=== PATIENT | male | born 1940 | race Caucasian/White ===

== ENCOUNTER 2016-07-07 09:10 | Outpatient (CLI) | payer OTHER ==
[2015-03-28 22:58] VITALS: BP 130/66
== END 2016-07-07 09:11 ==
LOC: LAB 09:10
PROVIDERS: ATTEND Family Medicine
DX: E78.00 Pure hypercholesterolemia, unspecified (principal)
CPT/HCPCS: 36415; 80061

== ENCOUNTER 2016-10-06 09:18 | Outpatient (CLI) | payer OTHER ==
[2015-03-28 22:58] VITALS: BP 130/66
[2016-10-06 09:32] LABS: BASOPHILS % 0.5 (0.0-1.5); EOSINOPHILS % 1.1 % (0.0-6.8); MEAN CORPUSCULAR HEMOGLOBIN 30.3 pg (28.0-34.0); MEAN CORPUSCULAR VOLUME 88.5 fl (80.0-100.0); MONOCYTES % 6.4 % (0.0-11.0)
[2016-10-06 10:01] LABS: eGFR (African) > 60; eGFR (Non-African) > 60
== END 2016-10-06 10:00 ==
LOC: LAB 09:18
PROVIDERS: ATTEND Family Medicine
DX: E11.9 Type 2 diabetes mellitus without complications (principal); I10 Essential (primary) hypertension
CPT/HCPCS: 36415; 80053; 83036; 85025

== ENCOUNTER 2017-01-10 09:37 | Outpatient (CLI) | payer OTHER ==
[2015-03-28 22:58] VITALS: BP 130/66
[2017-01-10 22:20] LABS: TOTAL PROTEIN 7.1 g/dL (6.0-8.5)
== END 2017-01-10 09:40 ==
LOC: LAB 09:37
PROVIDERS: ATTEND Family Medicine
DX: Z51.81 Encounter for therapeutic drug level monitoring (principal); E11.9 Type 2 diabetes mellitus without complications
CPT/HCPCS: 36415; 80053; 83036

== ENCOUNTER 2017-05-18 14:24 | Outpatient (CLI) | payer OTHER ==
[2015-03-28 22:58] VITALS: BP 130/66
== END 2017-05-18 14:25 ==
LOC: POD 14:24
PROVIDERS: ATTEND Podiatrist
DX: E11.42 Type 2 diabetes mellitus with diabetic polyneuropathy (principal); B35.1 Tinea unguium; M79.674 Pain in right toe(s); M79.675 Pain in left toe(s)
CPT/HCPCS: G0463

== ENCOUNTER 2017-06-24 13:30 | Emergency (ER) | payer OTHER ==
--- NOTE | 2017-06-24 13:33 | ED Physician Documentation ---
General Adult - HISTORIAN Historian: patient - HPI Stated Complaint: weakness Chief Complaint: Dizziness Onset: hours (3 - but similar has happened two days in a row ) Timing: better Severity: mild Further Comments: yes (He reports for two days he has had some mild weakness and dizziness without checking he took "sugar pills because I thought i was loosing my sugar like I sometimes do" . He states this am at 0900 he ate two pancakes with peanut butter and diet syrup and sausage with eggs. He states that he felt "a little dizzy" and then around 11 they went to the grocery where he does not go in. states when she returned to the car he was complining of increaed dizziness and some nausea. She states they had "two more stops then went home where I had to help him up the stairs and he did vomit one time" . States he thought is was loosing his sugar so he took one tablet but when checking the blood sugar was over 150. He states he thought he better come to the ER to get checked out for the dizziness and current mild nausea. He denies any dizziness while laying down No chest pain, no other complaints.) Last known Well Code/Unknown Code: Unknown - ROS CONST: weakness (x 3 days ) EYES/ENT: none CVS/RESP: denies: chest pain, shortness of breath, cough GI/: vomiting, nausea. denies: abdominal pain, problems urinating, diarrhea MS/SKIN/LYMPH: none NEURO/PSYCH: dizziness, difficulty walking. denies: headache, fainting, numbness, difficulty with speech, anxiety, depression - PAST HX Past History: other (diabetes, alzhemiers, hypertension, hyperlipidemia ) Other History: none Surgeries/Procedures: none Immunizations: UTD Allergies/Adverse Reactions: Allergies Allergy/AdvReac Type Severity Reaction Status Date / Time No Known Drug Allergies Allergy Verified 06/24/17 13:50 Home Medications: Ambulatory Orders Medication Instructions Recorded Diclofenac Sodium [Diclofenac 75 mg PO DAILY 06/24/17 Sodium] Donepezil HCl [Donepezil HCl] 10 mg PO DAILY 06/24/17 Lisinopril [Lisinopril] 20 mg PO DAILY 06/24/17 Metformin HCl [Glucophage] 500 mg PO BID 06/24/17 Simvastatin [Zocor] 20 mg PO DAILY 06/24/17 - SOCIAL HX Smoking History: cigarettes Alcohol Use: none Drug Use: none - FAMILY HX Family History: No - VITAL SIGNS Vital Signs: Vital Signs Temp Pulse Resp BP Pulse Ox 130/66 03/28/15 22:53 - REVIEWED ASSESSMENTS Nursing Assessment Reviewed: Yes Vitals Reviewed: Yes Progress - Progress Progress: 1435: Nausea is improved. Denies dizziness now. DG General Adult Physical Exam - PHYSICAL EXAM GENERAL APPEARANCE: no distress EENT: eye inspection normal, ENT inspection normal NECK: normal inspection RESPIRATORY: no resp distress, chest non-tender, breath sounds normal CVS: reg rate & rhythm, heart sounds normal, equal pulses, no murmur ABDOMEN: soft, no organomegaly, normal bowel sounds, no distension, non-tender BACK: normal inspection SKIN: warm/dry, normal color EXTREMITIES: non-tender, normal range of motion, no evidence of injury, no edema NEURO: oriented X3, CN's nml as tested, motor nml, sensation nml, mood/affect nml, cognition normal Discharge Clincal Impression: Dizziness Referrals: Sree Marie MD [Primary Care Provider] - 2 Days Additional Instructions: 1. Increase fluids with water 2. move positions slowly 3. Check blood sugar 3 times per day and if feeling bad for 3 days or until see PCP 4. See Dr Marie 3-4 days 5. Return to ER For any concerns 6. Zofran 4 mg by mouth every 8 hours as needed for nausea Condition: Stable Disposition: 01 HOME, SELF-CARE Decision to Admit: NO Date of Decison to Admit: 06/24/17 Decision Time: 14:46
[2017-06-24 13:58] LABS: BASOPHILS % 0.7 (0.0-1.5); EOSINOPHILS % 0.1 % (0.0-6.8); MEAN CORPUSCULAR HEMOGLOBIN 30.8 pg (28.0-34.0); MEAN CORPUSCULAR VOLUME 87.8 fl (80.0-100.0); MONOCYTES % 5.8 % (0.0-11.0); NEUTROPHILS # 8.7 # k/uL (1.4-7.7)
[2017-06-24] MEDS: 0.9 % SODIUM CHLORIDE 1,000 ML IV ONE (13:58)
[2017-06-24] MEDS: ONDANSETRON HCL/PF 4 MG/ 2ML VIAL IVP ONE (13:58)
[2017-06-24 14:06] LABS: eGFR (African) > 60; eGFR (Non-African) > 60
[2017-06-24 14:55] VITALS: BP 180/80
[2017-06-25 06:42] LABS: APPEARANCE,URINE CLEAR (CLEAR); COLOR,URINE YELLOW (YELLOW); OCCULT BLOOD,URINE NEGATIVE (NEGATIVE); UROBILINOGEN URINE 0.2 Eu (0.2-1.0)
== END 2017-06-24 14:50 | disposition home or self-care (01) ==
LOC: ED 13:30
DX: R42 Dizziness and giddiness (principal); I10 Essential (primary) hypertension; G30.9 Alzheimer's disease, unspecified; F02.80 Dementia in other diseases classified elsewhere, unspecified severity, without behavioral disturbance, psychotic disturbance, mood disturbance, and anxiety; E11.9 Type 2 diabetes mellitus without complications; E78.5 Hyperlipidemia, unspecified
CPT/HCPCS: 80053; 81002; 85025; J2405; J7030; 96365; 96375; 99283; S1016

== ENCOUNTER 2017-06-27 10:36 | Outpatient (CLI) | payer OTHER ==
--- NOTE | 2017-06-27 18:36 | Diagnostic Imaging Report ---
MELINA CAR [facility] [address] [facility] [address] [place], [place]. [address] Report Submission Date: Jun 27, 2017 11:37:19 AM COMPUTATIONAL SCIENTIST Patient Study Name: RUSTY KOENIG Date: Jun 27, 2017 11:04:27 AM COMPUTATIONAL SCIENTIST Modality Type: CT Gender: M Description: CT HEAD W/O CONTRAST : 38 Institution: [facility] Physician: MELINA CAR Examination: CT head without contrast History: CT HEAD W/O CONTRAST, VERTIGO; ATAXIA , SINCE 06/23/17 (Hx) / VERTIGO, ATAXIA (DICOM Hx) Comparison exam: None available Technique: Noncontrast head CT protocol. Findings: Ventricles and sulci are prominent. Cerebrocerebellar parenchyma demonstrates periventricular low attenuation consistent with small vessel disease. No evidence for parenchymal hemorrhage. No evidence for mass or mass effect. No midline shift. No extra axial fluid collections. Partial visualization of the paranasal sinuses, mastoid air cells, orbits, skull and scalp without gross irregularity. Impression: Moderate to advanced age related changes. No acute appearing parenchymal process. No hemorrhage. Electronically signed on Jun 27, 2017 11:37:19 AM COMPUTATIONAL SCIENTIST by: Garrett POLO
== END 2017-06-27 11:00 ==
LOC: RAD 10:36
PROVIDERS: ATTEND Family Medicine
DX: R27.0 Ataxia, unspecified (principal); R42 Dizziness and giddiness
CPT/HCPCS: 70450

== ENCOUNTER 2017-08-21 12:37 | Outpatient (CLI) | payer OTHER | END 2017-08-21 12:40 | LOC: POD 12:37 | PROVIDERS: ATTEND Podiatrist | DX: E11.42 Type 2 diabetes mellitus with diabetic polyneuropathy (principal); B35.1 Tinea unguium; M79.674 Pain in right toe(s); M79.675 Pain in left toe(s) | CPT/HCPCS: 11721; G0463 ==

== ENCOUNTER 2017-09-07 14:25 | Emergency (ER) | payer OTHER ==
--- NOTE | 2017-09-07 15:04 | ED Physician Documentation ---
General Adult - HISTORIAN Historian: patient, child - HPI Stated Complaint: weakness Chief Complaint: General Adult Additional Information: 'I JUST FEEL YUCKY" NON SPECIFIC ONSET THIOS AM DENIES PAIN. BK=OK E/S = OK-- BP USUALLYL NORMAL ON LISINOPRIL. BP 207/104 NOW Onset: other (AWOKE) Timing: still present Severity: moderate Further Comments: yes (PT DENIES EXPERICINT THIS FEELING BEFORE) - ROS CONST: no problems. denies: fever, sweating, recent illness EYES/ENT: none CVS/RESP: none GI/: none (NOCTURIA X 1) NEURO/PSYCH: denies: headache, fainting, dizziness, tingling, numbness, difficulty walking - PAST HX Past History: hypertension, other (DOABETES W/NEUROPATHY B/S=141) Other History: diabetes Type 2 Surgeries/Procedures: none Allergies/Adverse Reactions: Allergies Allergy/AdvReac Type Severity Reaction Status Date / Time No Known Drug Allergies Allergy Verified 09/07/17 14:44 Home Medications: Ambulatory Orders Medication Instructions Recorded Diclofenac Sodium [Diclofenac 75 mg PO DAILY 06/24/17 Sodium] Donepezil HCl [Donepezil HCl] 10 mg PO DAILY 06/24/17 Lisinopril [Lisinopril] 20 mg PO DAILY 06/24/17 Metformin HCl [Glucophage] 500 mg PO BID 06/24/17 Simvastatin [Zocor] 20 mg PO DAILY 06/24/17 Hydrochlorothiazide 12.5 mg PO DAILY #30 capsule 09/07/17 - SOCIAL HX Smoking History: non-smoker Alcohol Use: other (1 BEER PER DAY) Drug Use: none - FAMILY HX Family History: No - VITAL SIGNS Vital Signs: Vital Signs Temp Pulse Resp BP Pulse Ox 97.9 F 86 17 201/97 95 09/07/17 14:30 09/07/17 14:30 09/07/17 14:30 09/07/17 14:30 09/07/17 14:30 - REVIEWED ASSESSMENTS Nursing Assessment Reviewed: Yes Vitals Reviewed: Yes ED Results Lab/Radiology - Orders Orders: ED Orders Category Date Time Status Continuous EKG monitoring Q30M Care 09/07/17 15:00 Ordered Continuous Pulse Oximetry Q30M Care 09/07/17 15:[address] IV Lock 1T Care 09/07/17 15:00 Ordered CBC/PLATELET/DIFF Routine Lab 09/07/17 15:00 Ordered CMP Routine Lab 09/07/17 15:00 Ordered TROPONIN I (cTnI) Stat Lab 09/07/17 15:00 Ordered Nitroglycerin [Nitroquick] Med 09/07/17 14:55 Discontinued 0.4 mg SL .STK-MED ONE Nitroglycerin [Nitroquick] Med 09/07/17 15:00 Ordered 0.4 mg SL Q5M PRN EKG WITH COMPARISON Stat Ther 09/07/17 15:00 Ordered General Adult Physical Exam - PHYSICAL EXAM GENERAL APPEARANCE: mild distress EENT: eye inspection normal NECK: normal inspection, thyroid normal. No: carotid bruit RESPIRATORY: no resp distress, chest non-tender, breath sounds normal CVS: reg rate & rhythm, heart sounds normal ABDOMEN: soft, non-tender SKIN: warm/dry, normal color. No: cyanosis, diaphoresis, jaundice, mottled EXTREMITIES: non-tender, normal range of motion, no evidence of injury, no edema NEURO: oriented X3, motor nml, sensation nml, mood/affect nml, cognition normal Discharge Clincal Impression: unc htn, diab etic neuropathy Prescriptions: Hydrochlorothiazide 12.5 mg PO DAILY #30 capsule Referrals: Sree Marie MD [Primary Care Provider] - 2 Days Comments: increase lisinopril to two per day add hctz 12.5 - see pcp first week rted prn , disc hosp pt says no Condition: Good Disposition: 01 HOME, SELF-CARE Decision to Admit: NO Decision Time: 17:37
[2017-09-07] MEDS: NITROGLYCERIN 0.4 MG TAB.SUBL SL ONE (15:13)
[2017-09-07] MEDS: NITROGLYCERIN 0.4 MG TAB.SUBL SL PRN (15:13)
[2017-09-07 15:31] LABS: BASOPHILS % 0.4 (0.0-1.5); EOSINOPHILS % 0.2 % (0.0-6.8); MEAN CORPUSCULAR HEMOGLOBIN 29.7 pg (28.0-34.0); MONOCYTES % 6.1 % (0.0-11.0); NEUTROPHILS # 4.4 # k/uL (1.4-7.7)
[2017-09-07 15:50] LABS: eGFR (African) > 60; eGFR (Non-African) > 60
[2017-09-07] MEDS: HYDROCHLOROTHIAZIDE 25 MG TABLET PO SCH (16:32)
[2017-09-07] MEDS: CloNIDine HCL 0.1 MG TABLET PO ONE (16:32)
[2017-09-07 17:36] VITALS: BP 184/89
== END 2017-09-07 17:35 | disposition home or self-care (01) ==
LOC: ED 14:25
DX: I16.0 Hypertensive urgency (principal); E11.40 Type 2 diabetes mellitus with diabetic neuropathy, unspecified
CPT/HCPCS: 80053; 84484; 85025; S1016

== ENCOUNTER 2017-10-12 09:26 | Outpatient (CLI) | payer OTHER | END 2017-10-12 11:42 | LOC: LAB 09:26 | PROVIDERS: ATTEND Family Medicine | DX: R63.4 Abnormal weight loss (principal); E78.00 Pure hypercholesterolemia, unspecified; E11.9 Type 2 diabetes mellitus without complications | CPT/HCPCS: 36415; 80061; 83036; 84443 ==

== ENCOUNTER 2018-03-07 10:05 | Outpatient (CLI) | payer OTHER | END 2018-03-07 10:10 | disposition home or self-care (01) | LOC: LAB 10:05 | PROVIDERS: ATTEND Family Medicine | DX: E11.9 Type 2 diabetes mellitus without complications (principal) | CPT/HCPCS: 36415; 83036 ==

== ENCOUNTER 2018-04-22 12:52 | Outpatient (CLI) | payer OTHER ==
--- NOTE | 2018-04-22 20:02 | Diagnostic Imaging Report ---
ARNOLDO MEJIA [facility] [address] [address] Report Submission Date: Apr 22, 2018 5:34:38 PM REAL ESTATE ADMINISTRATOR Patient Study Name: RUSTY KOENIG Date: Apr 22, 2018 12:54:37 PM REAL ESTATE ADMINISTRATOR Modality Type: DX Gender: M Description: CHEST : 38 Institution: [facility] Physician: ARNOLDO MEJIA PA and lateral chest History: Cough PA and lateral chest dated April 22, 2018 is without prior radiographs for comparison. Heart size is normal. The left lung is clear. There is a region of right basilar streaky parenchymal density. This finding is age indeterminate but pneumonia would not be excluded. There is no pleural effusion. There is a mild pectus excavatum deformity. Impression: Mild pectus excavatum deformity. Mild streaky area of parenchymal density at the right lung base, age indeterminate. However, pneumonia would not be excluded. Electronically signed on Apr 22, 2018 5:34:38 PM REAL ESTATE ADMINISTRATOR by: Keyanna Chen Addendum: Follow-up would be recommended to determine if this abnormality resolves after antibiotic treatment. If there are any comparison radiographs elsewhere, they would also be helpful. Addendum electronically signed by Keyanna Chen on April 22, 2018 5:53:08 PM [facility]
== END 2018-04-22 12:53 ==
LOC: RAD 12:52
PROVIDERS: ATTEND Nurse Practitioner Family
DX: R05 Cough (principal)
CPT/HCPCS: 71046

== ENCOUNTER 2018-06-06 08:57 | Outpatient (CLI) | payer OTHER ==
--- NOTE | 2018-06-06 20:41 | OP Clinic Progress Note ---
RUSTY KOENIG ADMISSION#.: [id number] : 1940 DATE OF VISIT: 06/06/2018 SUBJECTIVE: Rusty Koenig is a 78-year-old male who presented today for toenail trimming as he is unable to do it himself. This patient is a diabetic patient and requires my services to take care of his toenails and to check his feet about every 3 months. The patient does not admit to any problems with the feet, and does not admit to any fevers, chills, nausea, vomiting, shortness of breath or chest pain at this time. OBJECTIVE: Vitals: Temperature 98.2 degrees Fahrenheit, heart rate 83, respiratory rate 20, blood pressure 152/71, oxygen saturation 96% on room air. Vascular: DP and PT pulses 1+, bilateral feet. Capillary refill time is less than 3 seconds to the toes bilaterally. There is no edema, bilateral feet. The feet are mildly cool to the touch at the toes. Pulses were very difficult if able to be palpated today which seems different from last time. We will keep an eye on this to see if there is any worsening on his next visit. Musculoskeletal: No pain to palpation noted, bilateral feet. No gross abnormalities, bilateral feet. 5/5 muscle strength in all directions around the ankle and subtalar joint, bilateral feet. No pain with range of motion of the ankle or subtalar joint bilaterally. Neurologic: Light touch sensation is intact to the toes, bilateral feet. ASSESSMENT AND PLAN: 1. Onychomycosis, B35.1. 2. Type 2 diabetes mellitus without complication, without custodial current use of insulin, 11.9. PROCEDURE #1: The toenails were trimmed bilaterally without incident. There are no other real concerns bilaterally on the feet at this time. They look great and are without any sign of ulcerative or preulcerative lesions. Due to the seemingly less palpable pulses today but without any clinical symptoms for the patient at this time we will monitor blood flow to see if anything changes between now and the next visit in 3 months. If any signs of change or discoloration in the toes at that time we will definitely consider arterial Dopplers at that time. Return to the clinic in 3 months in the health clinic next door. We will trim the nails, evaluate feet and perform a diabetic foot check again, and again consider a more in depth neurologic and vascular workup due to his diabetes. Vitor Joiner D.P.M. (Dictated/Not Signed) Nora Job#: [id number] MTDD
== END 2018-06-06 09:00 ==
LOC: POD 08:57
PROVIDERS: ATTEND Podiatrist Foot & Ankle Surgery
DX: B35.1 Tinea unguium (principal); E11.9 Type 2 diabetes mellitus without complications
CPT/HCPCS: 11719; A4554

== ENCOUNTER 2018-09-05 09:18 | Observation (INO) | payer OTHER ==
[2018-09-05 10:11] LABS: BASOPHILS % 0.4 % (0.0-1.5); NEUTROPHILS # 8.5 # k/uL (1.4-7.7)
[2018-09-05 10:13] LABS: eGFR (Non-African) > 60
--- NOTE | 2018-09-05 11:18 | ED Physician Documentation ---
General Adult - HISTORIAN Historian: patient, other (son) - HPI Stated Complaint: BLE Weakness Chief Complaint: General Adult Further Comments: yes (78 year old male patient brought in by son for evaluation of leg weakness. Patient and son report increased weakness and difficulty with walking since yesterday. Patient denies fall, trauma, pain. Denies incontinence of bowel, has history of urinary incontinence.) - ROS CONST: no problems EYES/ENT: none CVS/RESP: none GI/: none MS/SKIN/LYMPH: none NEURO/PSYCH: difficulty walking. denies: headache, fainting, dizziness, tingling, numbness, difficulty with speech, anxiety, depression, other - PAST HX Past History: hypertension Other History: diabetes Type 2, other (HLD, stroke) Allergies/Adverse Reactions: Allergies Allergy/AdvReac Type Severity Reaction Status Date / Time No Known Drug Allergies Allergy Verified 09/05/18 09:41 Home Medications: Ambulatory Orders Medication Instructions Recorded Aspirin [Aby] 1 tab PO DAILY 09/05/18 - SOCIAL HX Smoking History: non-smoker Alcohol Use: occasionally - FAMILY HX Family History: No - VITAL SIGNS Vital Signs: Vital Signs Temp Pulse Resp BP Pulse Ox 98.0 F 92 H 18 169/106 94 09/05/18 09:20 09/05/18 09:20 09/05/18 09:20 09/05/18 09:20 09/05/18 09:20 - REVIEWED ASSESSMENTS Nursing Assessment Reviewed: Yes Vitals Reviewed: Yes Progress - Progress Progress: [address] Madera. Will add CT L-spine; admit observation for PT/OT evaluation and social insurance adviser consult. ED Results Lab/Radiology - Lab Results Lab Results: Lab Results 09/05/18 09/05/18 09:35 09:35 WBC 10.40 K/ul K/ul (4.00-12.00) RBC 4.65 M/ul M/ul (3.90-5.20) Hgb 14.0 g/dL g/dL (12.0-18.0) Hct 40.6 % % (37.0-53.0) MCV 87.0 fl fl (80.0-100.0) MCH 30.1 pg pg (28.0-34.0) MCHC 34.4 g/dL g/dL (30.0-36.0) RDW 14.0 % % (11.3-14.3) Plt Count 302 K/mm3 K/mm3 (130-400) Neut % (Auto) 81.5 % H % (39.0-79.0) Lymph % (Auto) 8.9 % L % (16.0-50.0) Polk % (Auto) 8.1 % % (0.0-11.0) Eos % (Auto) 1.1 % % (0.0-6.8) Baso % (Auto) 0.4 % % (0.0-1.5) Neut # (Auto) 8.5 # k/uL H # k/uL (1.4-7.7) Lymph # (Auto) 0.9 # k/uL # k/uL (0.6-4.0) Polk # (Auto) 0.8 # k/uL # k/uL (0.0-0.9) Eos # (Auto) 0.1 # k/uL # k/uL (0.0-0.6) Baso # (Auto) 0.0 # k/uL # k/uL (0.0-0.5) Sodium 134 mmol/L L mmol/L (137-145) Potassium 4.6 mmol/L mmol/L (3.5-5.1) Chloride 101 mmol/L mmol/L (98-107) Carbon Dioxide 23 mmol/L mmol/L (22-30) BUN 14 mg/dL mg/dL (9-20) Creatinine 0.99 mg/dL mg/dL (0.66-1.25) Estimated Creat Clear 58 Est GFR ( Amer) > 60 (60 - ) Est GFR (Non-Af Amer) > 60 (60 - ) Glucose 167 mg/dL H mg/dL (74-106) Calcium 9.7 mg/dL mg/dL (8.4-10.2) Total Bilirubin 0.8 mg/dL mg/dL (0.2-1.3) AST 27 U/L U/L (15-46) ALT 20 U/L U/L (0-50) Alkaline Phosphatase 111 U/L U/L (38-126) Total Protein 8.1 g/dL g/dL (6.3-8.2) Albumin 4.3 g/dL g/dL (3.5-5.0) - Orders Orders: ED Orders Category Date Time Status CT BRAIN W/O CONTRAST Stat Exams 09/05/[address] LUMBAR SPINE W/O [CT L-SPINE W/O CONTRAST] Stat Exams 09/05/18 Ordered CBC/PLATELET/DIFF Stat Lab 09/05/18 09:35 Completed CMP Stat Lab 09/05/18 09:35 Completed UA W/MICRO IF INDICATED Stat Lab 09/05/18 10:00 Ordered General Adult Physical Exam - PHYSICAL EXAM GENERAL APPEARANCE: [id number] N EENT: eye inspection normal, ABE RESPIRATORY: no resp distress, chest non-tender, breath sounds normal CVS: reg rate & rhythm, heart sounds normal, equal pulses, no murmur, no gallop, PMI nml, no JVD, no friction rub, 24 ABDOMEN: soft, no organomegaly, normal bowel sounds, no abdominal bruit, no distension BACK: normal inspection, no CVA tenderness SKIN: normal color, warm/dry, NR, INT, PAL, DR EXTREMITIES: non-tender, no evidence of injury, no edema, other (lower extremity strength good 4/5; gait extremely unsteady, dragging feet, cannot miner pick feet to safely walk. Unsteady, high risk for fall. ) NEURO: oriented X3, sensation nml, mood/affect nml Discharge Clincal Impression: Risk for falls, Unsteady gait Lower extremity weakness Qualifiers: Laterality: bilateral Qualified Code(s): R29.898 - Other symptoms and signs involving the musculoskeletal system Condition: Stable Decision to Admit: NO Decision Time: 11:24
[2018-09-05 12:08] VITALS: BMI 24.7
[2018-09-05] MEDS: GABAPENTIN 100 MG CAPSULE PO SCH ×2 (12:29→17:45)
[2018-09-05] MEDS: metFORMIN HCl 500 MG TABLET PO SCH (17:45)
--- NOTE | 2018-09-05 18:10 | Diagnostic Imaging Report ---
ABBIE DEL REAL (INSIDE SALES LEAD) - ER [facility] [address] [facility] [address] [place], [place]. [address] Report Submission Date: September 05, 2018 10:25:29 AM CDT Patient Study Name: RUSTY KOENIG Date: September 05, 2018 10:04:40 AM CDT Modality Type: CT\SR Gender: M Description: CT BRAIN W/O CONTRAST : 38 Institution: [facility] Physician: ABBIE DEL REAL (INSIDE SALES LEAD) - ER Examination: CT head without contrast History: PT STATES LEG WEAKNESS AND INABILITY TO STAND Comparison exam: 27 June 2017 Technique: Noncontrast head CT protocol. Findings: Ventricles and sulci are prominent, though stable. Cerebrocerebellar parenchyma demonstrates periventricular low attenuation consistent with small vessel disease: also stable. No evidence for parenchymal hemorrhage. No evidence for mass or mass effect. No midline shift. No extra axial fluid collections. Partial visualization of the paranasal sinuses, mastoid air cells, orbits, skull and scalp without gross irregularity. Impression: Stable advanced age related changes. No acute parenchymal process. No hemorrhage. Electronically signed on September 05, 2018 10:25:29 AM CDT by: Garrett POLO
--- NOTE | 2018-09-05 18:11 | Diagnostic Imaging Report ---
ABBIE DEL REAL (COMMERCIAL GLAZIER) - ER [facility] [address] [facility] [address] [place], [place]. [address] Report Submission Date: September 05, 2018 11:51:28 AM CDT Patient Study Name: RUSTY KOENIG Date: September 05, 2018 11:15:41 AM CDT Modality Type: CT\SR Gender: M Description: CT L-SPINE W/O CONTRAS : 38 Institution: [facility] Physician: ABBIE DEL REAL (COMMERCIAL GLAZIER) - ER Examination: CT lumbar spine History: LOWER EXTREMITY WEAKNESS Comparison exams: None available. Technique: CT lumbar spine axial imaging with sagittal and coronal reconstruction Findings: Sagittal reconstruction demonstrates normal height and alignment the lumbar vertebral bodies. No anterior compression deformity. Large bone cyst involving the superior margin of the L3 vertebral body. Anterior and lateral osteophytes. Coronal reconstruction does not demonstrate locked or perched facets. Sacroiliac joint degenerative spurring. Aortic atherosclerotic disease. Dilation at the iliac bifurcation to a diameter of 3.5 cm. Axial imaging obtained from T12 through the sacrum Lamina and pedicles are intact. No ossific density within the central canal. Multilevel facet degenerative changes. No prevertebral soft tissue abnormality. Impression: Multilevel degenerative changes. No evidence for vertebral body compression fracture. Large bone cyst involving the superior margin of the L3 vertebral body. 3.5 cm aortic dilation/aneurysm. Follow as warranted. Patient may benefit from a nonemergent lumbar spine MRI which would better evaluate the L3 bone cyst and for the degree of nerve/cord encroachment. Electronically signed on September 05, 2018 11:51:28 AM CDT by: Garrett POLO
[2018-09-05] MEDS ORDERED: SIMVASTATIN 40 MG TABLET PO SCH (21:00)
[2018-09-05] MEDS ORDERED: traZODone HCL 50 MG TABLET PO SCH (21:00)
[2018-09-06] MEDS: metFORMIN HCl 500 MG TABLET PO SCH (06:35)
[2018-09-06 06:38] LABS: APPEARANCE,URINE CLEAR (CLEAR); COLOR,URINE YELLOW (YELLOW); OCCULT BLOOD,URINE TRACE-LYSED (NEGATIVE)
[2018-09-06] MEDS ORDERED: ASPIRIN 81 MG CHEW TAB PO SCH (09:00)
[2018-09-06] MEDS ORDERED: LORATADINE 10 MG TABLET PO SCH (09:00)
[2018-09-06] MEDS ORDERED: LOSARTAN POTASSIUM 50 MG TABLET PO SCH (09:00)
[2018-09-06] MEDS: GABAPENTIN 100 MG CAPSULE PO SCH (09:24)
--- NOTE | 2018-09-06 10:20 | Diagnostic Imaging Report ---
FLORENCE ADAN [facility] [address] [facility] [address] [address] Report Submission Date: September 06, 2018 9:45:30 AM CDT Patient Study Name: RUSTY KOENIG Date: September 06, 2018 8:49:31 AM CDT Modality Type: US Gender: M Description: US PELVIS LIMITED/BLADDER/F/U : 38 Institution: [facility] Physician: FLORENCE ADAN Examination: Ultrasound pelvis/bladder limited. History: Evaluate bladder volumes. Comparison exams: None available. Findings: Bladder mucosa without irregularity. Pre void bladder volume 213 mL. Postvoid bladder volume 89 mm. Impression: 42% post void residual. Electronically signed on September 06, 2018 9:45:30 AM CDT by: Garrett POLO
[2018-09-06 11:56] VITALS: BP 165/88
== END 2018-09-06 11:49 ==
LOC: ED 09:18 → SOUTH 11:25
PROVIDERS: ADMIT Family Medicine; ATTEND Family Medicine
DX: R29.898 Other symptoms and signs involving the musculoskeletal system (principal); R26.81 Unsteadiness on feet; Z91.81 History of falling
CPT/HCPCS: 36415; 70450; 72131; 76857; 80053; 81002; 85025; 97161; 97165; 97530; 97535; 99234; G0378

== ENCOUNTER 2018-10-25 22:41 | Emergency (ER) | payer OTHER ==
[2018-10-25 23:12] VITALS: BP 164/78
--- NOTE | 2018-10-25 23:15 | ED Physician Documentation ---
Fall - HISTORIAN Historian: patient - HPI Stated Complaint: Urinary Retention Chief Complaint: Fall Onset: just prior to arrival Where: home Context: lost balance r: mild Associated Symptoms:: no loss of consciousness Location of Pain/Injury: other (coccyx ) Injury to Right Extremity: none Injury to Left Extremity: none Further Comments: yes (He states he was standing waiting on his grandson and something happened with a dog and he just fell down "on my butt" denies any LOC. No back pain. He states post that incident he was not able to urinate. Although the urinary issue has been on and off "not this bad" for a few weeks. He was recently placed on a new medication for this issue . He has no numbnes in legs no loss of control of bowel or bladder. He denies he had any dizziness or other complaints resulting in the fall) - ROS CONST: no problems GI/: problems urinating - PAST HX Past History: cardiac disease, diabetes Type 2, other (Hyperlipidemia CVA) Allergies/Adverse Reactions: Allergies Allergy/AdvReac Type Severity Reaction Status Date / Time No Known Drug Allergies Allergy Verified 10/25/18 23:53 Home Medications: Ambulatory Orders Medication Instructions Recorded Aspirin [Aby] 1 tab PO DAILY 09/05/18 - SOCIAL HX Smoking History: non-smoker Alcohol Use: none Drug Use: none - FAMILY HX Family History: none - VITAL SIGNS Vital Signs: Vital Signs Temp Pulse Resp BP Pulse Ox 98.6 F 115 H 18 164/78 94 10/25/18 22:43 10/25/18 22:43 10/25/18 22:43 10/25/18 22:43 10/25/18 22:43 - REVIEWED ASSESSMENTS Nursing Assessment Reviewed: Yes Vitals Reviewed: Yes Progress - Progress Progress: 0033: discussed results - he is agreeable to an I & O for relief. He has had some urine out since visit. DG ED Results Lab/Radiology - Radiology Radiology Impressions: Three views of lumbar spine Clinical history: Fall. Pain. Findings: Examination lumbar spine in AP, lateral and lateral coned-down views demonstrates vertebrae to be anatomically aligned. Pedicles are intact and the paravertebral soft tissues are within normal limits. There are small anterior and lateral osteophytes at multiple levels. Impression: 1. Spondylosis. 2. No fracture. Electronically signed on Oct 26, 2018 12:06:54 AM CDT by: Tacos Anthony Three views of the sacrum and coccyx Clinical history: Fall. Pain. Findings: Examination sacrum and coccyx in AP, lateral and angled views fails to demonstrate evidence of fracture. The sacroiliac joints are symmetric. Impression: 1. Negative study. Electronically signed on Oct 26, 2018 12:08:41 AM CDT by: Tacos Cruz Fall Physical Exam - Physical Exam General Appearance: no acute distress, alert Head: non-tender, no swelling Neck: non-tender, painless ROM Eye: ABE ENT: nml external inspection Resp/CVS: chest non-tender, breath sounds nml, no resp. distress, heart sounds nml Abdomen: soft, normal bowel sounds, no distension Neuro: oriented x3, CN's nml as tested, sensation nml Skin: color nml, no rash Back: normal inspection, no CVA tenderness Extremities: atraumatic, pelvis stable, hips non-tender Joint: joints nml - Ashmore Coma Score Eyes Open: Spontaneous Speech: Oriented Motor: Obeys Commands Discharge Clincal Impression: Urinary retention Referrals: Sree Marie MD [Primary Care Provider] - 2 Days Comments: 1. continue meds as prescribed 2. Notify Dr Marie Sunday 3. Return to ER for any increasing concerns Condition: Stable Disposition: 01 HOME, SELF-CARE Decision to Admit: NO Date of Decison to Admit: 10/26/18 Decision Time: 00:50
--- NOTE | 2018-10-26 05:28 | Diagnostic Imaging Report ---
DAVID PANG [facility] [address] [facility] [address] [place], [place]. [address] Report Submission Date: Oct 26, 2018 12:06:54 AM CDT Patient Study Name: RUSTY KOENIG Date: Oct 25, 2018 11:25:26 PM CDT Modality Type: DX Gender: M Description: L SPINE 2 OR 3 VIEWS : 38 Institution: [facility] Physician: DAVID PANG Three views of lumbar spine Clinical history: Fall. Pain. Findings: Examination lumbar spine in AP, lateral and lateral coned-down views demonstrates vertebrae to be anatomically aligned. Pedicles are intact and the paravertebral soft tissues are within normal limits. There are small anterior and lateral osteophytes at multiple levels. Impression: 1. Spondylosis. 2. No fracture. Electronically signed on Oct 26, 2018 12:06:54 AM CDT by: Tacos POLO
--- NOTE | 2018-10-26 05:29 | Diagnostic Imaging Report ---
DAVID PANG [facility] [address] [facility] [address] [address] [place], [place]. [address] Report Submission Date: Oct 26, 2018 12:08:41 AM CDT Patient Study Name: RUSTY KOENIG Date: Oct 25, 2018 11:25:26 PM CDT Modality Type: DX Gender: M Description: SACRUM COCCYX 2 VIEW+ : 38 Institution: [facility] Physician: DAVID PANG Three views of the sacrum and coccyx Clinical history: Fall. Pain. Findings: Examination sacrum and coccyx in AP, lateral and angled views fails to demonstrate evidence of fracture. The sacroiliac joints are symmetric. Impression: 1. Negative study. Electronically signed on Oct 26, 2018 12:08:41 AM CDT by: Tacos POLO
[2018-10-26 12:01] LABS: APPEARANCE,URINE CLEAR (CLEAR); COLOR,URINE YELLOW (YELLOW)
[2018-10-26 12:02] LABS: OCCULT BLOOD,URINE TRACE-LYSED (NEGATIVE); PH URINE 5.5 (5.0 - 8.0)
== END 2018-10-26 00:56 | disposition home or self-care (01) ==
LOC: ED 22:41
DX: M47.9 Spondylosis, unspecified (principal); R33.9 Retention of urine, unspecified
CPT/HCPCS: 72100; 72220; 81002; 99281; 99283

== ENCOUNTER 2019-01-22 15:10 | Outpatient (CLI) | payer OTHER | END 2019-01-22 15:20 | LOC: LABRHC 15:10 | PROVIDERS: ATTEND Family Medicine | DX: E11.9 Type 2 diabetes mellitus without complications (principal) | CPT/HCPCS: 83036 ==